=== PATIENT | female | born 1975 | race Caucasian/White ===

== ENCOUNTER 2019-09-11 19:14 | Emergency (ER) | payer OTHER, SELFPAY ==
[2019-09-11 19:18] VITALS: BP 139/82; PULSE 86; RESP 18; TEMP 36.7; O2SAT 97
--- NOTE | 2019-09-11 19:22 | DI.RAD.S_ITS ---
PROCEDURE: XR WRIST RT MIN 3V INDICATIONS: door slappmed onto wrist. TECHNIQUE: 4 views of the wrist were acquired. COMPARISON: None. FINDINGS: Bones: No fractures or dislocations. No suspicious bony lesions. Scaphoid view: No fracture Soft tissues: No suspicious soft tissue calcifications. IMPRESSION: No fracture. If the patient's pain or other symptoms persist, consider further evaluation with MRI Dictated by: All Boswell M.D. on 09/11/2019 at 20:13 Approved by: All Boswell M.D. on 09/11/2019 at 20:15
--- NOTE | 2019-09-11 19:30 | ED.UPPEXIN ---
HPI - Extremity Injury (Upper) <MAXI MinaP - Last Filed: 09/11/19 21:05> General Chief Complaint: Extremity Injury, Upper Stated Complaint: injury to right wrist, needs xray Time Seen by Provider: 09/11/19 19:23 Source: patient Mode of arrival: Ambulatory Limitations: no limitations History of Present Illness HPI narrative: This is a 43 year female, nonsmoker, who presents to ED with chief complain of right medial wrist discomfort and injury. 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 She also reports increased in size of cyst like lesion on her right volar aspect of wrist. Right dominant hand. Patient reports intact sensation and states able to move her fingers without difficulty. Pain increases with radial and ulna deviation motion. She had used ice packs twice today. Patient has previous orthopedic surgeries on right shoulder and carpal tunnel release surgeries in the past. Related Data Allergies Allergy/AdvReac Type Severity Reaction Status Date / Time adhesive Allergy Intermediate ITCHING Verified 09/11/19 19:22 hydrocodone Allergy Intermediate ITCHING Verified 09/11/19 19:22 latex Allergy Intermediate ITCHING Verified 09/11/19 19:22 Review of Systems <MAXI MinaP - Last Filed: 09/11/19 21:05> Review of Systems Narrative: General: Denies fever, chills, fatigue, malaise, sweats. HEENT: Denies sinus pain, ear pain, sore throat, difficulty swallowing, dizziness. Respiratory: Denies dyspnea, cough, wheezing, hemoptysis, sputum. Cardiovascular: Denies chest pain, palpitations, orthopnea, edema. Gastrointestinal: Denies nausea, vomiting, abdominal pain, diarrhea, constipation, melena. : Denies dysuria, frequency, incontinence, hematuria, urinary retention. Musculoskeletal: See HPI Skin: Denies rash, skin lesions, or other. Neurologic: Denies weakness, headache, numbness, change in speech, confusion, seizures, incoordination. Psychiatric: No concerning psychosocial issues. 12-point review of systems is negative except for those stated above. Patient History <MAXI MinaP - Last Filed: 09/11/19 21:05> Surgical History History of carpal tunnel surgery of right wrist (Acute) History of shoulder surgery (Acute) Social History Smoking Status: Never smoker Smoking Status: Never smoker alcohol intake frequency: 0-2 drinks per day Substance Use Type: does not use Exam <HIWOT Mina - Last Filed: 09/11/19 21:05> Narrative Exam Narrative: General appearance: well developed, well nourished, in no acute distress. Head: normocephalic, atraumatic, no scalp lesions, non-tender. ENT: Hearing grossly intact. Nose without bleeding, purulent discharge or deviation. Mucous membrane moist, no mucosal lesion. Throat without erythema, tonsillar hypertrophy or exudate. Uvula in midline, airway patent. Neck/Thyroid: neck supple, full range of motion, no visible masses or meningeal signs. No JVD, non-tender without lymphadenopathy. Skin: no suspicious rashes, lesions over visible areas. Warm and dry and appropriate color for ethnicity. Heart: no clubbing, no cyanosis, no edema. Lungs: Breathing even and unlabored. No stridor. No accessory muscles used. Able to speak in full sentences. Chest: normal shape and expansion. Abdomen: non-obese, non-distended. Neurologic: alert and oriented. 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 Psych: good eye contact, normal affect. Initial Vital Signs Initial Vital Signs: Vital Signs Temperature 98.0 F 09/11/19 19:18 Pulse Rate 86 09/11/19 19:18 Respiratory Rate 18 09/11/19 19:18 Blood Pressure 139/82 09/11/19 19:18 Pulse Oximetry 97 09/11/19 19:18 Extrem Right upper extremity: wrist Details: abnormal to inspection, tenderness Location: of the dorsal wrist (proximal 2/3rd metacarpal near wrist), swelling (very mild) Location: of the dorsal wrist, normal ROM, ecchymosis (dorsal aspect R proximal 2/3rd metacarpal near wrist. Red discoloration), normal vascular exam and radial pulse present; ROM normal, no unusual warmth, no abrasions, no lacerations, no crepitus and no deformity and hand Details: normal to inspection, normal capillary refill, neuromotor exam normal, neurosensory exam normal, vascular exam Details: radial pulse present and normal capillary refill, normal ROM of fingers and no swelling; no abrasions and no lacerations <Elina Menard MD - Last Filed: 09/12/19 05:24> Initial Vital Signs Initial Vital Signs: Vital Signs Temperature 98.0 F 09/11/19 19:18 Pulse Rate 86 09/11/19 19:18 Respiratory Rate 18 09/11/19 19:18 Blood Pressure 139/82 09/11/19 19:18 Pulse Oximetry 97 09/11/19 19:18 Scores <HIWOT Mina - Last Filed: 09/11/19 21:05> GCS Goldston coma scale eye opening: Spontaneous Micheline coma scale verbal response: Orientated Micheline coma scale motor response: Obey commands Goldston coma scale total score: 15 Course <HIWOT Mina - Last Filed: 09/11/19 21:05> Orders Ordered: ED Orders 09/11/19 19:22 XR wrist RT min 3V Stat Vital Signs Vital signs: Vital Signs - 8 hr 09/11/19 19:18 09/11/19 19:54 09/11/19 20:45 Temperature 98.0 F Pulse Rate 86 63 Pulse Rate [Right Radial] 80 Respiratory Rate 18 16 Blood Pressure 139/82 Blood Pressure [Left Arm] 143/74 H Pulse Oximetry 97 100 <Elina Menard MD - Last Filed: 09/12/19 05:24> Orders Ordered: ED Orders 09/11/19 19:22 XR wrist RT min 3V Stat Vital Signs Vital signs: Vital Signs - 8 hr 09/11/19 19:18 09/11/19 19:54 09/11/19 20:45 Temperature 98.0 F Pulse Rate 86 63 Pulse Rate [Right Radial] 80 Respiratory Rate 18 16 Blood Pressure 139/82 Blood Pressure [Left Arm] 143/74 H Pulse Oximetry 97 100 MDM - Extremity Injury (Upper) <HIWOT Mina - Last Filed: 09/11/19 21:05> Differential Diagnosis Differential diagnosis: Likely sprain and strain of wrist and fracture of wrist Medical Records Attestation: I reviewed the patient's medical records. Imaging Data XR-Wrist RT: Radiologist's Impression: Precious Quinn 43 F [address] [address] XRay Report Signed Patient: Precious Quinn [facility]#: [id number] : 1975Acct:[id number] Age/Sex: 43 / FDate of Service: 09/11/19 Loc: ED Accession Number: [id number] Procedure: XR wrist RT min 3V Ordering Provider: Elina Menard MD PROCEDURE: XR WRIST RT MIN 3V INDICATIONS: door slappmed onto wrist. TECHNIQUE: 4 views of the wrist were acquired. COMPARISON: None. FINDINGS: Bones: No fractures or dislocations. No suspicious bony lesions. Scaphoid view: No fracture Soft tissues: No suspicious soft tissue calcifications. IMPRESSION: No fracture. If the patient's pain or other symptoms persist, consider further evaluation with MRI Dictated by: All Boswell M.D. on 09/11/2019 at 20:13 Approved by: All Boswell M.D. 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 Patient has intact sensation and range of motion without difficulty. There is very mild swelling and redness discoloration on dorsal aspect of right medial wrist. X-ray was negative for fracture. Patient advised to use as needed Tylenol and or Motrin for discomfort and cool pack for next couple of days. Work injury document has been completed. Patient verbalized understanding and agrees with treatment plan. Discharge Plan Departure Patient Disposition: Home Clinical Impression: Contusion of right wrist, initial encounter Discharge Date/Time: 09/11/19 20:53 Instructions: DI for Wrist Sprain Activity Restrictions/Additional Instructions: You have been diagnosed with [wrist contusion and sprain. There is no fracture or dislocation according to x-ray test today. You can use Guilherme wrap for support as needed for discomfort.]. What to do: *Take your medications as directed. You can use [id number] Tylenol 650 mg up to 4 times a day and ibuprofen 400 mg 3 times a day with food as needed for discomfort. Cool pack on affected side for next couple of days if there is discomfort or swelling. *Follow up with your primary care provider in 2-3 days, call for an appointment. Let them know you were seen in the ED and that we asked you to be seen in follow up. *Return to ED if you have any new, worsening, or concerning symptoms, such as [tingling/numbness/weakness to affected hand, fever, pain, chest pain, breathing difficulty or any acute concerns]. Referrals: [facility] [Outside]
[2019-09-11 19:54] VITALS: PULSE 80
[2019-09-11 20:45] VITALS: BP 143/74; PULSE 63; RESP 16; O2SAT 100
== END 2019-09-11 20:53 | disposition home or self-care (01) ==
PROVIDERS: Emergency Provider Nurse Practitioner Family
DX: S60.211A Contusion of right wrist, initial encounter (principal); W22.8XXA Striking against or struck by other objects, initial encounter; Y99.0 Civilian activity done for income or pay
CPT/HCPCS: 73110; 99281; 99283

== ENCOUNTER → 2020-10-14 16:32 | Outpatient (CLI) | payer OTHER, SELFPAY ==
--- NOTE | 2020-10-14 16:34 | DI.RAD.S_ITS ---
PROCEDURE: XR HIP W PEL IF DONE RT 2V INDICATIONS: R hip/groin pain TECHNIQUE: AP pelvis with lateral view(s) of the right hip(s). COMPARISON: None. FINDINGS: Bones: No fractures or dislocations. Pelvic ring appears intact. No suspicious bony lesions. Soft tissues: The visualized bowel gas pattern is normal. No suspicious soft tissue calcifications. IMPRESSION: No evidence acute bony abnormality of the pelvis and right hip. If clinical suspicion and/or symptoms persist, further assessment with repeat plain films, or advanced imaging (e.g., CT, MRI, or bone scan) may be helpful for further assessment. Dictated by: Curt López M.D. on 10/14/2020 at 16:29 Approved by: Curt López M.D. on 10/14/2020 at 16:30
== END ==
PROVIDERS: Referring Provider Nurse Practitioner; Visit Provider Nurse Practitioner
DX: M25.551 Pain in right hip (principal)
CPT/HCPCS: 73502